=== PATIENT | female | born 1990 | race African-American/Black ===

== ENCOUNTER 2022-02-27 11:03 | Emergency (ER) | payer OTHER, SELFPAY ==
--- NOTE | ~2022-02-27 | US_ITS ---
EXAMINATION: US OB <= 14 weeks fetus DATE: 02/27/2022 12:35 INDICATION: Abdominal pain. . TECHNIQUE: Real-time transabdominal pelvic ultrasound was performed. COMPARISON: None. FINDINGS: The uterus measures 11.3 x 8.5 x 7.0 cm. There is an intrauterine gestational sac. A yolk sac is iden tified. The crown rump length measures 1.4 cm, which correlates with an estimated gestational age of 7 weeks and 5 day(s) (+/-) 5 day(s). heart motion is identified measuring 173 beats per minute (bpm) by M-mode Doppler. There is a small subchorionic hematoma. The right ovary measures 3.6 x 3.1 x 5.3 cm. The left ovary is not visualized. There is no free fluid in the pelvis. IMPRESSION: 1. Single living intrauterine gestation with estimated date of delivery of 10/11/2022. 2. Small subchorionic hematoma. Reviewed, dictated and finalized at location A. IMPRESSION: 1. Single living intrauterine gestation with estimated date of delivery of 09/23. 2. Small subchorionic hematoma.
--- NOTE | ~2022-02-27 | XR_ITS ---
EXAMINATION: XR chest 1V portable 02/27/2022 11:28 INDICATION: Covid positive PROCEDURE: AP portable chest COMPARISON: No prior studies for comparison. FINDINGS: The lungs are clear. The cardiomediastinal silhouette is within normal limits. There are no pleural effusions. There is no pneumothorax suspected. IMPRESSION: 1: NO ACUTE CARDIOPULMONARY DISEASE. Reviewed, dictated and finalized at location A.
--- NOTE | 2022-02-27 11:05 | ECG_ITS ---
Measurements Intervals [place] Rate: 80 P: 69 UT: 144 QRS: 52 QRSD: 94 T: 25 QT: 356 QTc: 413 Interpretive Statements SINUS RHYTHM WITH SINUS ARRHYTHMIA NORMAL ELECTROCARDIOGRAM NO PREVIOUS ECG AVAILABLE FOR COMPARISON Electronically Signed On 02-27-2022 16:27:41 CDT by Imtiaz Hampton M.D.
[2022-02-27 11:11] VITALS: BP 150/78; PULSE 87; RESP 20; TEMP 36.5; O2SAT 99
--- NOTE | 2022-02-27 11:17 | ED.GENADULT ---
HPI - General Adult General Chief complaint: Shortness of Breath/Dyspnea Stated complaint: covid + 02/22/22 - feel like i cant breathe Time Seen by Provider: 02/27/22 11:07 History of Present Illness HPI narrative: Patient presents emergency department from home for shortness of breath. Patient states that she has been feeling short of breath with a cough for the past 6 days states she was diagnosed with COVID-19 on 02/22/2022. Patient states she has had a cough that has been she denies any fevers or chills she states that she will have some mild pain in the mid center of the chest with coughing only but no pain currently no pain at rest she states that she is approximately 6 weeks but does not have a current [employer] she denies any fevers or chills abdominal pain nausea vomiting vaginal bleeding or any other symptoms patient states her shortness of breath feels like she cannot take a deep breath Related Data Allergies Allergy/AdvReac Type Severity Reaction Status Date / Time No Known Allergies Allergy Verified 02/27/22 11:16 Review of Systems Review of Systems: Gen.: Denies fevers or chills ENT: Reports congestion Respiratory: Reports feeling of shortness of breath and CV: Denies chest pain or palpitations GI: Denies abdominal pain nausea, emesis or diarrhea : Reports Musculoskeletal: Denies back pain or muscle pain Neuro: Denies numbness, tingling, weakness or focal weakness Skin: Denies rash Except as documented, all other systems reviewed and negative [facility] Past Medical History Medical History (Updated 02/27/22 @ 15:18 by Rocco Caldwell DO) COVID-19 Social History Social History (Updated 02/27/22 @ 15:19 by Rocco Caldwell DO) Smoking status: Never smoker Exam Narrative: APPEARANCE: No acute distress, nontoxic, resting in bed EYES: EOMI HEENT: Normocephalic, atraumatic, bilateral turbinates boggy RESPIRATORY: No respiratory distress Clear to auscultation bilaterally with no rhonchi wheezing or rales. CARDIOVASCULAR: Regular rate and rhythm without murmurs rubs or gallops. ABDOMINAL: Soft, nontender, nondistended, no rebound or guarding MUSCULOSKELETAl: Moves all extremities. No clubbing, cyanosis or edema. NEURO: Awake and alert. Following commands, speech normal, no focal deficits SKIN:: Warm, dry. No rashes lesions or abrasions PSYCHIATRIC: Normal affect/mood, Course Course Emergency Course: Patient will get up and ambulate in the emergency department no difficulty oxygen saturation staying at 98% Discussed with Dr. Beth presentation work-up agrees to plan for discharge at this time Discussed with patient results of workup and diagnosis. Discussed need for follow-up with primary care, proper use of medication, and reasons to return to the emergency department. Patient understands and agrees to current treatment plan Vital Signs Vital signs: Vital Signs Temperature 97.7 F 02/27/22 11:11 Pulse Rate 87 02/27/22 11:11 Respiratory Rate 20 02/27/22 11:11 Blood Pressure 150/78 H 02/27/22 11:11 Pulse Oximetry 99 02/27/22 11:11 Oxygen Delivery Room Air 02/27/22 11:11 Temperature 97.7 F 02/27/22 11:11 Pulse Rate 86 02/27/22 15:20 Respiratory Rate 19 02/27/22 15:20 Blood Pressure 115/61 02/27/22 15:20 Pulse Oximetry 100 02/27/22 15:20 Oxygen Delivery Room Air 02/27/22 11:24 Medical Decision Making [facility] Narrative Medical decision making narrative: Patient presents for COVID-19 symptoms began approximately 6 days ago oxygen saturations are stable in the emergency department chest x-ray shows no acute process able to get up and ambulate with pulse ox 98%. EKG shows no acute process D-dimer is less than 0.27 remainder lab work is within normal limits the patient is ultrasound does confirm an intrauterine at 7 weeks that she has not had a previous ultrasound she denies any current abdominal pain or vaginal bleeding nazia partida
[2022-02-27 11:24] VITALS: O2SAT 99
[2022-02-27 11:40] LABS: Basophils Percent Auto 0.2 % (0.2-1.2); Eosinophils Absolute Auto 0.1 K/mm3 (0-0.3); Eosinophils Percent Auto 2.2 % (0-4.4); Hematocrit 33.4 % (37.0-47.0); Hemoglobin 9.6 g/dL (12.0-15.0); Immature Granulocyte Absolute 0.01 K/mm3 (0.00-0.031); Immature Granulocyte Percent A 0.2 % (0-0.5); Immature Platelet Fraction Pct 5.7 % (0.9-11.2); Lymphocytes Absolute Auto 1.74 K/mm3 (0.9-3.2); Lymphocytes Percent Auto 38.2 % (18.3-44.2); Mean Corpuscular HGB Conc 28.7 g/dl (32-36); Mean Corpuscular Hemoglobin 22.3 pg (26-34); Mean Corpuscular Volume 77.7 fl (80-100); Mean Platelet Volume 11.6 fl (7.4-10.4); Monocytes Absolute Auto 0.4 K/mm3 (0.1-0.6); Monocytes Percent Auto 9.2 % (2.6-8.5); Neutrophils Absolute Auto 2.3 K/mm3 (1.3-6.7); Platelet Count Result 200 k/mm3 (150-375); Red Cell Distribution Width 20.7 % (11.5-14.5); White Blood Count 4.6 K/mm3 (4.5-10.0)
[2022-02-27 11:43] LABS: Alanine Aminotransferase 28 U/L (6-35); Albumin Level 3.8 g/dL (3.5-5.1); Alkaline Phosphatase 36 U/L (38-126); Anion Gap 11 mmol/L (8-16); Aspartate Amino Transferase 36 U/L (14-36); Bilirubin,Total < 0.1 mg/dL (0.2-1.3); Blood Urea Nitrogen 9 mg/dL (7-17); Calcium 8.5 mg/dL (8.4-10.2); Carbon Dioxide 19 mmol/L (22-30); Chloride 105 mmol/L (98-107); Estimated CRCL calculation 163 ml/min; Estimated Glomerular Filt Rate > 60; Glucose 95 mg/dL (65-110); Potassium 3.8 mmol/L (3.4-5.0); Sodium 135 mmol/L (137-145)
[2022-02-27 11:57] LABS: D Dimer < 0.27 ug/mL (<0.48)
[2022-02-27 12:01] LABS: Platelet Estimate Adequate (Adequate); Poikilocytosis 1+ (NORMAL)
[2022-02-27 12:02] LABS: Large Platelets Present
[2022-02-27] MEDS: ALBUTEROL SULFATE (*SP) AEROSOL 1 PUFF 2 PUFF INHALATION (12:25)
[2022-02-27 12:30] VITALS: PULSE 72; RESP 18
[2022-02-27 13:45] VITALS: BP 118/62; PULSE 78; RESP 17; O2SAT 100
--- NOTE | 2022-02-27 13:47 | PC.NURSE ---
walked pt w/ pulse ox. pt's O2 saturation was 98% while ambulating.
[2022-02-27 14:55] VITALS: BP 123/70; PULSE 80; RESP 19; O2SAT 100
[2022-02-27 15:20] VITALS: BP 115/61; PULSE 86; RESP 19; O2SAT 100
[2022-02-27 15:47] LABS: Troponin I < 0.012 ng/mL (0.000-0.034)
== END 2022-02-27 15:27 | disposition home or self-care (01) ==
PROVIDERS: Emergency Provider Emergency Medicine
DX: O98.511 Other viral diseases complicating pregnancy, first trimester (principal); U07.1 COVID-19; Z3A.01 Less than 8 weeks gestation of pregnancy
CPT/HCPCS: 36415; 71045; 76801; 80053; 84484; 84702; 85025; 85055; 85380; 93005; 94640; 99284; A9270